=== PATIENT | female | born 1965 | race Caucasian/White ===

== ENCOUNTER 2020-04-04 07:38 | Day surgery (SDC) | payer OTHER ==
[~2020-04-04] VITALS: Ht 170.2 cm; Wt 70.2 kg
[~2020-04-04 07:38] MED LIST: CODBUTASA PO; ESTRTP VAG; Sudogest60 MG PO
[2020-04-04] MEDS ORDERED: ALBU90OI INH (08:22)
--- NOTE | 2020-04-04 10:59 | NUR ---
04/04/20 1059 Desire Shah PT COMPLAINS OF SCRATCHY THROAT AND CONTINUED NAUSEA BUT IS TOLERATING ICE CHIPS.
--- NOTE | 2020-04-04 11:18 | NUR ---
04/04/20 1118 Shelly Beltran 1MG EPI INJECTED INTO FIRST THREE BAGS OF 3000ML LR FOR IRRIGATION/ HOMESTASIS PER DOCTOR ORDER
== END 2020-04-04 11:59 | disposition home or self-care (01) ==
LOC: ORSCSDS 07:38
PROVIDERS: Orthopaedic Surgery
PROC: 0RNJ4ZZ Release Right Shoulder Joint, Percutaneous Endoscopic Approach (ICD-10-PCS; principal; 2020-04-04 09:15)
PROC: 0RBJ4ZZ Excision of Right Shoulder Joint, Percutaneous Endoscopic Approach (ICD-10-PCS; principal; 2020-04-04 09:15)
PROC: 0LS34ZZ Reposition Right Upper Arm Tendon, Percutaneous Endoscopic Approach (ICD-10-PCS; principal; 2020-04-04 09:15)
PROC: 0LQ14ZZ Repair Right Shoulder Tendon, Percutaneous Endoscopic Approach (ICD-10-PCS; principal; 2020-04-04 09:15)
DX: M75.101 Unspecified rotator cuff tear or rupture of right shoulder, not specified as traumatic (principal); M75.21 Bicipital tendinitis, right shoulder; M75.41 Impingement syndrome of right shoulder; J45.909 Unspecified asthma, uncomplicated; Z79.899 Other long term (current) drug therapy
CPT/HCPCS: A9270; C1713; J0171; J0690; J2250; J2370; J2405; J2704; J2765; J3010; J7120

== ENCOUNTER → 2024-01-21 | Outpatient (CLI) | payer BC ==
[~2024-01-21] MED LIST changes: +ALBU90OI INH
== END ==
LOC: LAB SHORT 07:39 → LAB 07:39
DX: C44.722 Squamous cell carcinoma of skin of right lower limb, including hip (principal)
CPT/HCPCS: 88305

== ENCOUNTER 2025-01-17 11:43 | Day surgery (SDC) | payer BC ==
[~2025-01-17] VITALS: Ht 170.2 cm; Wt 70.1 kg
[2025-01-17] VITALS (14 sets, daily range): BP systolic 101–129; BP diastolic 67–99
--- NOTE | 2025-01-17 12:31 | NUR ---
Ambulatory in Day SurgeryPre-Op teaching done. Pt verbalizes understanding. History, Chart, Medications and Allergies reviewed before start of procedure.Patient confirms NPO status and agrees with scheduled surgery. Patient States Post-Procedure ride home has been arranged.
--- NOTE | 2025-01-17 13:02 | NUR ---
01/17/25 1302 Vanessa Nogueira CONFIRMED AND REVIEWED H&P, MEDCICATIONS, ALLERGIES, MEDICAL HISTORY, RESPIRATORY HISTORY, VITAL SIGNS, 3-LEAD EKG, CONSENTS, AND PHYSICIAN ORDERS. PATIENT CONFIRMS NPO STATUS AND AGREES WITH SCHEDULED PROCEDURE. MONITOR INTACT WITH CONTINUOUS PULSE OXIMETRY, CAPNOGRAPHY, 3-LEAD EKG, INTERMITTENT BP. SUPPLEMENTAL O2 TO BE TITRATED THROUGHOUT PROCEDURE TO MAINTAIN O2 SATURATION ABOVE 90%. PATIENT DETERMINED TO BE ASA APPROPRIATE FOR PROPOFOL SEDATION PRIOR TO START OF PROCEDURE BY DR. HARRISON
== END 2025-01-17 14:19 | disposition home or self-care (01) ==
LOC: ORSCMMR 11:43 → ORD 13:45 → ORSCMMR 14:19
PROVIDERS: Surgery
PROC: 0DBL8ZX Excision of Transverse Colon, Via Natural or Artificial Opening Endoscopic, Diagnostic (ICD-10-PCS; principal; 2025-01-17 13:45)
DX: Z12.11 Encounter for screening for malignant neoplasm of colon (principal); D12.3 Benign neoplasm of transverse colon; J45.909 Unspecified asthma, uncomplicated; E78.5 Hyperlipidemia, unspecified; Z79.899 Other long term (current) drug therapy
CPT/HCPCS: 88305; J2704; J7120